=== PATIENT | female | born 1995 | race Caucasian/White ===

== ENCOUNTER 2016-12-31 18:50 | Emergency (ER) | payer BC ==
[2016-12-31] MEDS ORDERED: Ondansetron 4 MG/2 ML SDV IVPUSH ONE (19:02)
[2016-12-31] MEDS ORDERED: Sodium Chloride 0.9% 1,000 ML IV ONE (19:02)
--- NOTE | 2016-12-31 19:33 | EDM.PDOC ---
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 Pt reports pain in cramping in character. 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 Pt denies any waterbreak or vaginal discharge. Onset Date: 12/31/16 Onset Time: 18:00 Duration: Hour(s): (1) Location: Reports: Abdomen Quality: Reports: Other (cramping) Improves with: Reports: None Worsens with: Reports: None Associated Symptoms: Reports: Nausea/Vomiting - Related Data Allergies Allergy/AdvReac Type Severity Reaction Status Date / Time No Known Allergies Allergy Verified 12/29/16 17:15 Home Meds: Home Meds . 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: Social & Family History - Tobacco Use Smoking Status *Q: Never Smoker ED ROS GENERAL - Review of Systems Review Of Systems: See Below Constitutional: Reports: No Symptoms HEENT: Reports: No Symptoms Respiratory: Reports: No Symptoms Cardiovascular: Reports: No Symptoms Endocrine: Reports: No Symptoms GI/Abdominal: Reports: Abdominal Pain, Nausea, Vomiting : Reports: No Symptoms Musculoskeletal: Reports: No Symptoms Skin: Reports: No Symptoms Neurological: Reports: No Symptoms Psychiatric: Reports: No Symptoms Hematologic/Lymphatic: Reports: No Symptoms Immunologic: Reports: No Symptoms ED EXAM - Physical Exam Exam: See Below Exam Limited By: No Limitations General Appearance: Alert, WD/WN, No Apparent Distress Nose: Normal Inspection, Normal Mucosa, No Blood Throat/Mouth: Normal Inspection, Normal Lips, Normal Teeth, Normal Gums, Normal Oropharynx, Normal Voice, No Airway Compromise Head: Atraumatic, Normocephalic Neck: Normal Inspection, Supple, Non-Tender, Full Range of Motion Respiratory/Chest: No Respiratory Distress, Lungs Clear, Normal Breath Sounds, No Accessory Muscle Use, Chest Non-Tender Cardiovascular: Normal Peripheral Pulses, Regular Rate, Rhythm, No Edema, No Gallop, No JVD, No Murmur, No Rub GI/Abdominal Exam: Normal Bowel Sounds, No Organomegaly, No Abnormal Bruit, No Mass, Pelvis Stable, Tender (Female) Exam: Normal Bimanual Exam, Normal External Exam Heart Tones: Present Movement: Active Back Exam: Normal Inspection, Full Range of Motion, NT Extremities: Normal Inspection, Normal Range of Motion, Non-Tender, Normal Capillary Refill, No Pedal Edema Neurological: Alert, Oriented, CN II-XII Intact, Normal Cognition, Normal Gait, Normal Reflexes, No Motor/Sensory Deficits Psychiatric: Normal Affect, Normal Mood Course - Orders/Labs/Meds Orders: Active Orders 24 hr Category Date Time Status CBC WITH AUTO DIFF [HEME] Stat Lab 12/31/16 19:08 Ordered COMPREHENSIVE METABOLIC PN,CMP [CHEM] Stat Lab 12/31/16 19:08 Ordered UA W/MICROSCOPIC [URIN] Stat Lab 12/31/16 19:02 Uncollected Sodium Chloride 0.9% @ 999 MLS/HR (1000ml) Med 12/31/16 19:02 Ordered Sodium Chloride 0.9% [Normal Saline] 1,000 ml IV .BOLUS Medication Orders Sodium Chloride (Normal Saline) 1,000 mls @ 999 mls/hr IV .BOLUS ONE Stop: 12/31/16 20:02 Meds: Medications Generic Name Dose Route Start Last Admin Trade Name Freq PRN Reason Stop Dose Admin Sodium Chloride 1,000 mls @ 999 mls/hr 12/31/16 19:02 Normal Saline IV 12/31/16 20:02 .BOLUS ONE Discontinued Medications Generic Name Dose Route Start Last Admin Trade Name Freq PRN Reason Stop Dose Admin Ondansetron HCl 4 mg 12/31/16 19:02 Zofran IVPUSH 12/31/16 19:03 ONETIME ONE Departure - Departure Time of Disposition: 19:37 Disposition: DC/Tfer to Acute Hospital 02 Condition: Good Clinical Impression: Abdominal pain affecting , Vomiting - Discharge Information Forms: Interfacility Transfer EMTALA - My Orders Last 24 Hours: My Active Orders 12/31/16 19:02 UA W/MICROSCOPIC [URIN] Stat Sodium Chloride 0.9% @ 999 MLS/HR (1000ml) Sodium Chloride 0.9% [Normal Saline] 1,000 ml IV .BOLUS 12/31/16 19:08 CBC WITH AUTO DIFF [HEME] Stat COMPREHENSIVE METABOLIC PN,CMP [CHEM] Stat - Assessment/Plan Last 24 Hours: My Active Orders 12/31/16 19:02 UA W/MICROSCOPIC [URIN] Stat Sodium Chloride 0.9% @ 999 MLS/HR (1000ml) Sodium Chloride 0.9% [Normal Saline] 1,000 ml IV .BOLUS 12/31/16 19:08 CBC WITH AUTO DIFF [HEME] Stat COMPREHENSIVE METABOLIC PN,CMP [CHEM] Stat Assessment:: 1. abdominal pain in a 37 week 2. vomiting Plan: 1. discussed case with Dr Olivas- PAYROLL MACHINE OPERATOR who accepted transfer to Labor and delivery department. 2. supportive care
[2017-01-01 02:01] VITALS: BP 140/65
== END 2016-12-31 19:50 ==
LOC: KA.ED 18:50
DX: O21.9 Vomiting of pregnancy, unspecified (principal); O99.89 Other specified diseases and conditions complicating pregnancy, childbirth and the puerperium; R10.9 Unspecified abdominal pain; Z3A.37 37 weeks gestation of pregnancy
CPT/HCPCS: 96361; 96374; 99285; J2405; J7030

== ENCOUNTER 2017-03-18 13:14 | Emergency (ER) | payer BC ==
[2017-03-18 13:32] VITALS: BP 125/80
[2017-03-18] MEDS ORDERED: Sodium Chloride 0.9% 1,000 ML IV ONE (13:59)
[2017-03-18] MEDS ORDERED: Ondansetron 4 MG/2 ML SDV IVPUSH ONE (13:59)
[2017-03-18] MEDS ORDERED: Sodium Chloride 0.9% 5 ML Syringe FLUSH PRN (13:59)
--- NOTE | 2017-03-18 14:05 | EDM.PDOC ---
ED HPI GENERAL MEDICAL PROBLEM - General Chief Complaint: Gastrointestinal Problem Stated Complaint: DEHYDRATION,BODY NUMBNESS,VOMITING,HEADACHE,FEVER Time Seen by Provider: 03/18/17 13:58 Source of Information: Reports: Patient History Limitations: Reports: No Limitations - History of Present Illness INITIAL COMMENTS - FREE TEXT/NARRATIVE: PT STATES SHE DEVELOPED COUGH, CONGESTION, BODY ACHES, N/V SINCE YESTERDAY. GENERAL C/O DOESN'T FEEL WELL AND HAS CHILLS BUT DID NOT TAKE TEMP. DENIES CLOSE CONTACT WITH OTHERS WHO HAVE SAME SYMPTOMS, CP, SOB, DYSURIA OR ABD PAIN. BY 10 WEEKS. Onset: Gradual Onset Date: 03/17/17 Duration: Day(s): Quality: Reports: Ache Severity: Mild Improves with: Reports: None Worsens with: Reports: None Associated Symptoms: Reports: Cough, cough w sputum, Fever/Chills, Nausea/ Vomiting - Related Data Allergies Allergy/AdvReac Type Severity Reaction Status Date / Time No Known Allergies Allergy Verified 03/18/17 13:32 Home Meds: Home Meds . 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: Neurological History: Reports: Headaches, Chronic - Infectious Disease History Infectious Disease History: Reports: Chicken Pox - Past Surgical History HEENT Surgical History: Reports: None GI Surgical History: Reports: Cholecystectomy Female Surgical History: Reports: None Neurological Surgical History: Reports: None Social & Family History - Tobacco Use Smoking Status *Q: Never Smoker - Caffeine Use Caffeine Use: Reports: Coffee, Soda Other Caffeine Use: coke and pepsi - Recreational Drug Use Recreational Drug Use: No ED ROS GENERAL - Review of Systems Review Of Systems: ROS reveals no pertinent complaints other than HPI. Constitutional: Reports: Chills, Malaise, Fatigue HEENT: Reports: No Symptoms Respiratory: Reports: Cough Cardiovascular: Reports: No Symptoms Endocrine: Reports: No Symptoms GI/Abdominal: Reports: Hematochezia, Nausea, Vomiting. Denies: Abdominal Pain, Black Stool, Bloody Stool, Hematemesis : Reports: No Symptoms Musculoskeletal: Reports: No Symptoms Skin: Reports: No Symptoms Neurological: Reports: No Symptoms Psychiatric: Reports: No Symptoms Hematologic/Lymphatic: Reports: No Symptoms Immunologic: Reports: No Symptoms ED EXAM, GENERAL - Physical Exam Exam: See Below Exam Limited By: No Limitations General Appearance: Alert, WD/WN, No Apparent Distress Nose: Normal Inspection, No Blood, Clear Rhinorrhea Throat/Mouth: Normal Inspection, Normal Oropharynx, No Airway Compromise Head: Atraumatic, Normocephalic Neck: Normal Inspection, Supple, Non-Tender. No: Lymphadenopathy (L), Lymphadenopathy (R) Respiratory/Chest: No Respiratory Distress, Lungs Clear, Normal Breath Sounds, No Accessory Muscle Use, Chest Non-Tender Cardiovascular: Regular Rate, Rhythm, No Murmur GI/Abdominal: Normal Bowel Sounds, Soft, Non-Tender, No Organomegaly, No Distention, No Abnormal Bruit, No Mass Back Exam: Normal Inspection. No: CVA Tenderness (L), CVA Tenderness (R) Extremities: Normal Inspection, No Pedal Edema Neurological: Alert, Oriented, Normal Cognition Psychiatric: Normal Affect, Normal Mood Skin Exam: Warm, Dry, Intact, Normal Color, No Rash Lymphatic: No Adenopathy Course - Vital Signs Last Recorded V/S: Last Vital Signs Temp 98.4 F 03/18/17 13:28 Pulse 100 03/18/17 13:28 Resp 18 03/18/17 13:28 BP 125/80 03/18/17 13:28 Pulse Ox 98 03/18/17 13:28 - Orders/Labs/Meds Orders: Active Orders 24 hr Category Date Time Status Peripheral IV Care [RC] . DIRECTED Care 03/18/17 13:59 Ordered INFLUENZA A+B AG SCREEN [RM] Stat Lab 03/18/17 13:41 Ordered Ondansetron [Zofran] Med 03/18/17 13:59 Once 4 mg IVPUSH ONETIME ONE Sodium Chloride 0.9% @ 999 MLS/HR (1000ml) Med 03/18/17 13:59 Ordered Sodium Chloride 0.9% [Normal Saline] 1,000 ml IV .BOLUS Sodium Chloride 0.9% [Syrex Flush] Med 03/18/17 13:59 Ordered 5 ml FLUSH Q8HR PRN Peripheral IV Insertion Adult [OM.PC] Routine Oth 03/18/17 13:59 Ordered Labs: Laboratory Tests 03/18/17 Range/Units 13:45 Urine HCG, Qual Negative (NEGATIVE) - Re-Assessments/Exams Free Text/Narrative Re-Assessment/Exam: 03/18/17 14:29 PT AFEBRILE, NONTOXIC APPEARING, VSS, FEELS BETTER. Departure - Departure Time of Disposition: 14:33 Disposition: Home, Self-Care 01 Condition: Good Clinical Impression: Acute viral syndrome - Discharge Information Instructions: Dehydration, Adult, [id number], Nausea and Vomiting, Adult, [id number], Viral Respiratory Infection, [id number] Referrals: Koki Hyde MD [Primary Care Provider] - Additional Instructions: FOLLOW UP AT CLINIC IN 2-3 DAYS. RETURN TO ER SOONER IF SYMPTOMS CONTINUE - My Orders Last 24 Hours: My Active Orders 03/18/17 13:41 INFLUENZA A+B AG SCREEN [RM] Stat 03/18/17 13:59 Peripheral IV Care [RC] . DIRECTED Ondansetron [Zofran] 4 mg IVPUSH ONETIME ONE Sodium Chloride 0.9% @ 999 MLS/HR (1000ml) Sodium Chloride 0.9% [Normal Saline] 1,000 ml IV .BOLUS Sodium Chloride 0.9% [Syrex Flush] 5 ml FLUSH Q8HR PRN Peripheral IV Insertion Adult [OM.PC] Routine - Assessment/Plan Last 24 Hours: My Active Orders 03/18/17 13:41 INFLUENZA A+B AG SCREEN [RM] Stat 03/18/17 13:59 Peripheral IV Care [RC] . DIRECTED Ondansetron [Zofran] 4 mg IVPUSH ONETIME ONE Sodium Chloride 0.9% @ 999 MLS/HR (1000ml) Sodium Chloride 0.9% [Normal Saline] 1,000 ml IV .BOLUS Sodium Chloride 0.9% [Syrex Flush] 5 ml FLUSH Q8HR PRN Peripheral IV Insertion Adult [OM.PC] Routine Assessment:: VIRAL SYNDROME Plan: F/U WITH PCP
[2017-03-18] MEDS ORDERED: Ketorolac 30 MG/ML SDV IVPUSH ONE (14:28)
== END 2017-03-18 15:10 | disposition home or self-care (01) ==
LOC: KA.ED 13:14
DX: B34.9 Viral infection, unspecified (principal)
CPT/HCPCS: 81025; 87804; 96361; 96374; 96375; 99283; J1885; J2405; J7030

== ENCOUNTER 2018-08-28 13:12 | Emergency (ER) | payer BC ==
[2018-08-28 13:29] VITALS: BP 123/73
--- NOTE | 2018-08-28 13:36 | EDM.PDOC ---
ED HPI GENERAL MEDICAL PROBLEM - General Chief Complaint: General Stated Complaint: rt ankle Time Seen by Provider: 08/28/18 13:31 Source of Information: Reports: Patient History Limitations: Reports: No Limitations - History of Present Illness INITIAL COMMENTS - FREE TEXT/NARRATIVE: While descending stairs on third step slipped and fell striking the base of the stairway/floor. [place] crackling sound and noticed intense pain immediately with swollen forming to the lateral aspect predominantly on the lateral malleolus right ankle Onset: Today, Sudden Duration: Minutes: Location: Reports: Lower Extremity, Right Quality: Reports: Sharp, Throbbing Severity: Severe Improves with: Reports: Cold Therapy Worsens with: Reports: Movement Context: Reports: Activity Associated Symptoms: Reports: No Other Symptoms Right Ankle Pain Score (Numeric/FACES): 10 - Related Data Allergies Allergy/AdvReac Type Severity Reaction Status Date / Time No Known Allergies Allergy Verified 08/28/18 13:32 Home Meds: Home Meds . 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: Neurological History: Reports: Headaches, Chronic - Infectious Disease History Infectious Disease History: Reports: Chicken Pox - Past Surgical History HEENT Surgical History: Reports: None GI Surgical History: Reports: Cholecystectomy Female Surgical History: Reports: None Neurological Surgical History: Reports: None Social & Family History - Caffeine Use Caffeine Use: Reports: Coffee, Soda Other Caffeine Use: coke and pepsi ED ROS GENERAL - Review of Systems Review Of Systems: See Below Constitutional: Reports: No Symptoms HEENT: Reports: No Symptoms Respiratory: Reports: No Symptoms Cardiovascular: Reports: No Symptoms Endocrine: Reports: No Symptoms GI/Abdominal: Reports: No Symptoms : Reports: No Symptoms Musculoskeletal: Reports: Joint Pain, Joint Swelling Skin: Reports: No Symptoms Neurological: Reports: No Symptoms Psychiatric: Reports: No Symptoms Hematologic/Lymphatic: Reports: No Symptoms Immunologic: Reports: No Symptoms ED EXAM, GENERAL - Physical Exam Exam: See Below General Appearance: Alert, WD/WN, No Apparent Distress Ears: Normal External Exam Nose: Normal Inspection, No Blood Throat/Mouth: Normal Inspection, Normal Oropharynx Head: Atraumatic, Normocephalic Neck: Normal Inspection, Supple, Non-Tender, Full Range of Motion Respiratory/Chest: No Respiratory Distress, Lungs Clear, No Accessory Muscle Use Cardiovascular: Regular Rate, Rhythm, No Murmur GI/Abdominal: Normal Bowel Sounds (Female) Exam: Deferred Extremities: Joint Swelling, Leg Pain Neurological: Alert, Oriented, CN II-XII Intact, Normal Cognition, Normal Gait, Normal Reflexes, No Motor/Sensory Deficits Psychiatric: Normal Affect, Normal Mood Skin Exam: Warm, Dry, Intact, Normal Color, No Rash Lymphatic: No Adenopathy Course - Vital Signs Last Recorded V/S: Last Vital Signs Temp 36.7 C 08/28/18 13:25 Pulse 104 H 08/28/18 13:25 Resp 20 08/28/18 13:25 BP 123/73 08/28/18 13:25 Pulse Ox 96 08/28/18 13:25 - Orders/Labs/Meds Orders: Active Orders 24 hr Category Date Time Status Ankle Min 3V Rt [CR] Stat Exams 08/28/18 13:33 Taken Departure - Departure Time of Disposition: 14:10 Disposition: Home, Self-Care 01 Condition: Good Clinical Impression: Sprained ankle, Joint effusion of lower extremity - Discharge Information *PRESCRIPTION DRUG MONITORING PROGRAM REVIEWED*: Not Applicable *COPY OF PRESCRIPTION DRUG MONITORING REPORT IN PATIENT DAYO: Not Applicable Referrals: Elizabeth Busch PA-C [Primary Care Provider] - Forms: ED Department Discharge - Problem List & Annotations (1) Sprained ankle SNOMED Code(s): 72363472 Code(s): S93.409A - SPRAIN OF UNSP LIGAMENT OF UNSPECIFIED ANKLE, INIT ENCNTR Status: Acute Priority: High Current Visit: Yes Qualifiers: Involved ligament of ankle: unspecified ligament Laterality: right (2) Joint effusion of lower extremity SNOMED Code(s): 173946449 Code(s): M25.40 - EFFUSION, UNSPECIFIED JOINT Status: Acute Priority: High Current Visit: Yes - Problem List Review Problem List Initiated/Reviewed/Updated: Yes - My Orders Last 24 Hours: My Active Orders 08/28/18 13:33 Ankle Min 3V Rt [CR] Stat - Assessment/Plan Last 24 Hours: My Active Orders 08/28/18 13:33 Ankle Min 3V Rt [CR] Stat Plan: Ice elevate and rest for the next 36 hours. You may remove Zachary wrap twice daily and for hygiene as needed. Limits her activity for the next 36 hours with protection to avoid further injury. If you do not start to see improvement by Tuesday consider contacting your provider for discussion or clinic appointment reassessment.
== END 2018-08-28 14:30 | disposition home or self-care (01) ==
LOC: KA.ED 13:12
DX: S93.401A Sprain of unspecified ligament of right ankle, initial encounter (principal); W10.9XXA Fall (on) (from) unspecified stairs and steps, initial encounter
CPT/HCPCS: 73610-RT; 99283-25

== ENCOUNTER 2018-11-16 21:10 | Emergency (ER) | payer BC ==
[2018-11-16 21:27] VITALS: BP 153/81
--- NOTE | 2018-11-16 21:51 | EDM.PDOC ---
ED HPI GENERAL MEDICAL PROBLEM - General Chief Complaint: Lower Extremity Injury/Pain Stated Complaint: right ankle pain Time Seen by Provider: 11/16/18 21:33 Source of Information: Reports: Patient History Limitations: Reports: No Limitations - History of Present Illness Onset: Today Onset Date: 11/16/18 Onset Time: 11:00 Duration: Hour(s): Location: Reports: Lower Extremity, Right Quality: Reports: Ache Severity: Mild Improves with: Reports: None Worsens with: Reports: Movement Context: Reports: Trauma Associated Symptoms: Reports: No Other Symptoms right foot Pain Score (Numeric/FACES): 6 - Related Data Allergies Allergy/AdvReac Type Severity Reaction Status Date / Time No Known Allergies Allergy Verified 11/16/18 21:27 Home Meds: Home Meds . 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 Constitutional: Reports: No Symptoms Eyes: Reports: No Symptoms Ears: Reports: No Symptoms Nose: Reports: No Symptoms Mouth/Throat: Reports: No Symptoms Respiratory: Reports: No Symptoms Cardiovascular: Reports: No Symptoms GI/Abdominal: Reports: No Symptoms Genitourinary: Reports: No Symptoms Musculoskeletal: Reports: Foot Pain (Right) Skin: Reports: No Symptoms Neurological: Reports: No Symptoms Psychiatric: Reports: No Symptoms ED EXAM, GENERAL - Physical Exam Exam: See Below Exam Limited By: No Limitations General Appearance: Alert, WD/WN, No Apparent Distress Throat/Mouth: Normal Inspection, Normal Oropharynx, No Airway Compromise Head: Atraumatic, Normocephalic Neck: Normal Inspection Respiratory/Chest: No Respiratory Distress Back Exam: Normal Inspection Extremities: Leg Pain (Right ankle, lateral aspect, tender to palpation without edema or ecchymosis. Right lateral fifth metatarsal with tenderness to palpation and mild edema) Neurological: Alert, Oriented, Normal Cognition Psychiatric: Normal Affect, Normal Mood Skin Exam: Warm, Dry, Intact, Normal Color, No Rash Course - Vital Signs Last Recorded V/S: Last Vital Signs Temp 98.3 F 11/16/18 21:10 Pulse 107 H 11/16/18 21:10 Resp 18 11/16/18 21:10 BP 153/81 H 11/16/18 21:10 Pulse Ox 99 11/16/18 21:10 - Orders/Labs/Meds Orders: Active Orders 24 hr Category Date Time Status Ankle 2V Rt [CR] Stat Exams 11/16/18 21:28 Stop Req Ankle Min 3V Rt [CR] Stat Exams 11/16/18 21:32 Ordered Foot 2V Rt [CR] Stat Exams 11/16/18 21:28 Stop Req Foot Comp Min 3V Rt [CR] Stat Exams 11/16/18 21:32 Ordered - Re-Assessments/Exams Free Text/Narrative Re-Assessment/Exam: 11/16/18 21:51 Patient afebrile, vital signs stable, Zachary bandage applied. Rice instructions given. Patient will take [id number] NSAIDs. Departure - Departure Time of Disposition: 21:51 Disposition: Home, Self-Care 01 Condition: Good Clinical Impression: Ankle sprain Qualifiers: Encounter type: initial encounter Involved ligament of ankle: unspecified ligament Laterality: right Qualified Code(s): S93.401A - Sprain of unspecified ligament of right ankle, initial encounter Right foot sprain Qualifiers: Encounter type: initial encounter Qualified Code(s): S93.601A - Unspecified sprain of right foot, initial encounter - Discharge Information Instructions: Ankle Sprain, [id number], Elastic Bandage and RICE Additional Instructions: Follow-up with PCP in 2-3 days. Return to emergency sooner if symptoms continue or worsen. - My Orders Last 24 Hours: My Active Orders 11/16/18 21:28 Ankle 2V Rt [CR] Stat Foot 2V Rt [CR] Stat 11/16/18 21:32 Ankle Min 3V Rt [CR] Stat Foot Comp Min 3V Rt [CR] Stat - Assessment/Plan Last 24 Hours: My Active Orders 11/16/18 21:28 Ankle 2V Rt [CR] Stat Foot 2V Rt [CR] Stat 11/16/18 21:32 Ankle Min 3V Rt [CR] Stat Foot Comp Min 3V Rt [CR] Stat Assessment:: Ankle sprain Plan: Follow-up with PCP
--- NOTE | 2018-11-17 07:48 | CR ---
[id number] RAD/RAD Ankle Right 3V Min EXAM: RAD Ankle Right 3V Min CLINICAL DATA: RIGHT ANKLE PAIN COMPARISON: CORRELATION IS MADE WITH THE EXAM OF AUGUST 28, 2018. FINDINGS: No fracture or dislocation is seen. There is no radiopaque foreign body in the soft tissues. There is no air in the soft tissues. There is no cortical thickening or periosteal reaction either. IMPRESSION: NEGATIVE PLAIN FILM EXAM. Chaka Caro MD 11/17/18 0747 Thank you for allowing us to participate in the care of your patient.
--- NOTE | 2018-11-17 07:49 | CR ---
[id number] RAD/RAD Foot Right 3V Min EXAM: RAD Foot Right 3V Min CLINICAL DATA: RIGHT ANKLE PAIN COMPARISON: NO PREVIOUS SIMILAR EXAM IS AVAILABLE. FINDINGS: No fracture or dislocation is seen. There is no radiopaque foreign body in the soft tissues. There is no air in the soft tissues. There is no cortical thickening or periosteal reaction either. IMPRESSION: NEGATIVE PLAIN FILM EXAM. Chaka Caro MD 11/17/18 0748 Thank you for allowing us to participate in the care of your patient.
== END 2018-11-16 21:55 | disposition home or self-care (01) ==
LOC: KA.ED 21:10
DX: S93.401A Sprain of unspecified ligament of right ankle, initial encounter (principal); S93.601A Unspecified sprain of right foot, initial encounter; X50.9XXA Other and unspecified overexertion or strenuous movements or postures, initial encounter
CPT/HCPCS: 73610-RT; 73630-RT; 99283-25

== ENCOUNTER 2019-08-04 09:15 | Emergency (ER) | payer BC ==
[2019-08-04 09:49] VITALS: BP 148/84; PULSE 97
--- NOTE | 2019-08-04 10:12 | EDM.PDOC ---
ED HPI GENERAL MEDICAL PROBLEM - General Chief Complaint: General Stated Complaint: emesis Time Seen by Provider: 08/04/19 09:30 Source of Information: Reports: Patient History Limitations: Reports: No Limitations - History of Present Illness INITIAL COMMENTS - FREE TEXT/NARRATIVE: Patient presents with vomiting that started about 5 hours ago. She has vomited 3-4 times. She denies fever but has had a cough for a week. She also has some dysuria for 3 days. Recently she had a UTI and finished a course of antibiotics for it about a month ago. She was fine until dysuria started again a few days ago. - Related Data Allergies Allergy/AdvReac Type Severity Reaction Status Date / Time No Known Allergies Allergy Verified 08/04/19 09:35 Home Meds: Home Meds . 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: Neurological History: Reports: Headaches, Chronic - Infectious Disease History Infectious Disease History: Reports: Chicken Pox - Past Surgical History HEENT Surgical History: Reports: None GI Surgical History: Reports: Cholecystectomy Female Surgical History: Reports: None Neurological Surgical History: Reports: None Social & Family History - Family History Family Medical History: Noncontributory - Caffeine Use Caffeine Use: Reports: Coffee, Soda Other Caffeine Use: coke and pepsi ED ROS GENERAL - Review of Systems Review Of Systems: See Below Constitutional: Reports: Fatigue, Decreased Appetite. Denies: Fever, Chills, Weakness HEENT: Denies: Ear Pain, Throat Pain, Vision Change Respiratory: Reports: Cough. Denies: Shortness of Breath Cardiovascular: Denies: Chest Pain, Lightheadedness, Syncope GI/Abdominal: Reports: Nausea, Vomiting. Denies: Abdominal Pain, Constipation, Diarrhea : Reports: Dysuria. Denies: Flank Pain Musculoskeletal: Denies: Neck Pain, Shoulder Pain, Arm Pain, Back Pain, Hand Pain Skin: Denies: Cyanosis, Jaundice, Mottled, Pallor, Diaphoresis Neurological: Denies: Confusion, Dizziness, Headache, Seizure, Syncope, Trouble Speaking, Difficulty Walking Psychiatric: Denies: Agitation, Anxiety, Confusion ED EXAM, GENERAL - Physical Exam Exam: See Below Exam Limited By: No Limitations General Appearance: Alert, WD/WN, No Apparent Distress Eye Exam: Bilateral Eye: EOMI, Normal Inspection, PERRL Ears: Normal External Exam, Normal Canal, Hearing Grossly Normal, Normal TMs Nose: Normal Inspection, No Blood Throat/Mouth: Normal Inspection, Normal Lips, Normal Oropharynx, Normal Voice, No Airway Compromise Head: Atraumatic, Normocephalic Neck: Normal Inspection, Supple, Non-Tender, Full Range of Motion Respiratory/Chest: No Respiratory Distress, Lungs Clear, Normal Breath Sounds, No Accessory Muscle Use. No: Crackles, Rales, Rhonchi, Wheezing, Stridor Cardiovascular: Regular Rate, Rhythm, No Murmur GI/Abdominal: Normal Bowel Sounds, Soft, Non-Tender Back Exam: Normal Inspection, Full Range of Motion. No: CVA Tenderness (L), CVA Tenderness (R) Extremities: Normal Inspection, Normal Range of Motion Neurological: Alert, Oriented, Normal Cognition, No Motor/Sensory Deficits Psychiatric: Normal Affect, Normal Mood Skin Exam: Warm, Dry, Intact, Normal Color, No Rash Course - Vital Signs Last Recorded V/S: Last Vital Signs Temp 97.8 F 08/04/19 09:30 Pulse 97 08/04/19 09:30 Resp 16 08/04/19 09:30 BP 148/84 H 08/04/19 09:30 Pulse Ox 97 08/04/19 09:30 - Orders/Labs/Meds Orders: Active Orders 24 hr Category Date Time Status CULTURE URINE [RM] Stat Lab 08/04/19 10:28 Ordered Labs: Laboratory Tests 08/04/19 Range/Units 10:10 Specimen Type Urincc Urine Color Yellow (YELLOW) Urine Appearance Slightly cloudy H (CLEAR) Urine pH 5.5 (5.0-9.0) Ur Specific [place] >= 1.030 (1.005-1.030) Urine Protein Trace H (NEGATIVE) mg/dL Urine Glucose (UA) Negative (NEGATIVE) mg/dL Urine Ketones Trace H (NEGATIVE) mg/dL Urine Occult Blood Trace-intact H (NEGATIVE) Urine Nitrite Negative (NEGATIVE) Urine Bilirubin Small H (NEGATIVE) Urine Urobilinogen 0.2 (0.2-1.0) E.U./dL Ur Leukocyte Esterase Small H (NEGATIVE) Urine RBC 0-5 (0-5) /HPF Urine WBC 10-20 H (0-5) /HPF Ur Epithelial Cells Many H /LPF Urine Bacteria Moderate H (NONE TO FEW) /HPF - Re-Assessments/Exams Free Text/Narrative Re-Assessment/Exam: 08/04/19 10:34 Discussed findings and treatment plan with patient. 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 Discharged to home in stable condition. Departure - Departure Time of Disposition: 10:31 Disposition: Home, Self-Care 01 Condition: Good Clinical Impression: Acute cystitis Qualifiers: Hematuria presence: without hematuria Qualified Code(s): N30.00 - Acute cystitis without hematuria Vomiting Qualifiers: Vomiting type: unspecified Vomiting Intractability: non-intractable Nausea presence: with nausea Qualified Code(s): R11.2 - Nausea with vomiting, unspecified - Discharge Information Instructions: Nausea and Vomiting, Adult, [id number], Urinary Tract Infection , Adult, [id number] Forms: ED Department Discharge Additional Instructions: 1. Drink 8 cups of water daily as able. 2. Take the antibiotic as directed for the UTI. 3. Follow up with your PCP in a week for recheck of urine. 4. Recheck with your PCP sooner if anything is worsening. Sepsis Event Note - Evaluation Sepsis Screening Result: No Definite Risk - Focused Exam Vital Signs: Vital Signs Temp Pulse Resp BP Pulse Ox 08/04/19 09:30 97.8 F 97 16 148/84 H 97 Date Exam was Performed: 08/04/19 Time Exam was Performed: 10:33 - My Orders Last 24 Hours: My Active Orders 08/04/19 10:28 CULTURE URINE [RM] Stat - Assessment/Plan Last 24 Hours: My Active Orders 08/04/19 10:28 CULTURE URINE [RM] Stat
== END 2019-08-04 10:45 | disposition home or self-care (01) ==
LOC: KA.ED 09:15
DX: N30.00 Acute cystitis without hematuria (principal); R11.2 Nausea with vomiting, unspecified; Z90.49 Acquired absence of other specified parts of digestive tract
CPT/HCPCS: 81001; 87086; 99284

== ENCOUNTER 2019-10-28 17:20 | Emergency (ER) | payer BC ==
[2019-10-28 18:09] LABS: ANION GAP 19.5 mmol/L (5-15); CHLORIDE,CL 101 mmol/L (98-115); SODIUM,NA 139 mmol/L (136-145)
[2019-10-28 18:41] VITALS: BP 116/65; PULSE 100
--- NOTE | 2019-10-28 19:05 | EDM.PDOC ---
ED HPI GENERAL MEDICAL PROBLEM - General Chief Complaint: General Stated Complaint: BLADDER INFECTION/yeast Time Seen by Provider: 10/28/19 17:30 Source of Information: Reports: Patient ([id number]) History Limitations: Reports: No Limitations - History of Present Illness INITIAL COMMENTS - FREE TEXT/NARRATIVE: 24-year-old female presents emergency room with severe burning with urination. Onset of symptoms occurred this past Tuesday. [facility] started on Bactrim. She did not have improvement of her symptoms. She was then seen at the [facility] and started on Cipro 750 mg twice a day and pyridine. She continues to have hematuria and dysuria. She reports severe tenderness in the vaginal area. Patient states that she was also tested for STDs in [facility]. She is sexually active in a monogamous relationship as well as her partner. He believes she has a yeast infection. She is not on anything for yeast infection. She is otherwise healthy. She denies any fever or chills. She has difficulty urinating due to the discomfort. She's trying to stay hydrated. She denies flank pain. 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: Neurological History: Reports: Headaches, Chronic - Infectious Disease History Infectious Disease History: Reports: Chicken Pox - Past Surgical History HEENT Surgical History: Reports: None GI Surgical History: Reports: Cholecystectomy Female Surgical History: Reports: None Neurological Surgical History: Reports: None Social & Family History - Family History Family Medical History: Noncontributory - Caffeine Use Caffeine Use: Reports: Coffee, Soda Other Caffeine Use: coke and pepsi ED ROS GENERAL - Review of Systems Review Of Systems: See Below Constitutional: Denies: Fever, Chills, Malaise, Weakness HEENT: Reports: No Symptoms Respiratory: Reports: No Symptoms Cardiovascular: Reports: No Symptoms Endocrine: Denies: High Glucose GI/Abdominal: Denies: Abdominal Pain, Nausea, Vomiting : Reports: Discharge, Dysuria, Hematuria, Pain, Urinary Retention. Denies: Flank Pain Musculoskeletal: Denies: Back Pain Skin: Reports: No Symptoms Neurological: Reports: No Symptoms Psychiatric: Reports: No Symptoms Hematologic/Lymphatic: Reports: No Symptoms Immunologic: Reports: No Symptoms ED EXAM, GENERAL - Physical Exam Exam: See Below General Appearance: Alert, WD/WN, Mild Distress Ears: Hearing Grossly Normal Nose: Normal Inspection Throat/Mouth: Normal Inspection, Normal Voice, No Airway Compromise Head: Atraumatic, Normocephalic Neck: Normal Inspection Respiratory/Chest: No Respiratory Distress GI/Abdominal: Soft, Non-Tender (Female) Exam: Vaginal Discharge. No: Vaginal Bleeding Rectal (Female) Exam: No: Hemorrhoids Back Exam: Normal Inspection, Full Range of Motion Extremities: Normal Inspection, Normal Range of Motion Neurological: Alert, Oriented, No Motor/Sensory Deficits Psychiatric: Normal Affect, Normal Mood Skin Exam: Warm, Dry, Intact Lymphatic: No Adenopathy Course - Vital Signs Last Recorded V/S: Last Vital Signs Temp 97.6 F 10/28/19 17:30 Pulse 100 10/28/19 17:30 Resp 20 10/28/19 17:30 BP 116/65 10/28/19 17:30 Pulse Ox 96 10/28/19 17:30 - Orders/Labs/Meds Orders: Active Orders 24 hr Category Date Time Status CULTURE URINE [RM] Stat Lab 10/28/19 18:42 Ordered Labs: Laboratory Tests 10/28/19 10/28/19 10/28/19 Range/Units 17:40 17:40 18:00 WBC 8.55 (5.00-10.00) 10^3/uL RBC 5.02 (3.80-5.50) 10^6/uL Hgb 14.4 (12.0-16.0) g/dL Hct 41.6 (37.0-47.0) % MCV 82.9 (82.0-92.0) fL MCH 28.7 (27.0-31.0) pg MCHC 34.6 (32.0-36.0) g/dL RDW 11.9 (11.5-14.5) % Plt Count 259 (150-400) 10^3/uL MPV 9.5 (7.4-10.4) fL Immature Gran % (Auto) 0.2 (0.0-5.0) % Neut % (Auto) 51.4 (50.0-70.0) % Lymph % (Auto) 35.3 (20.0-40.0) % [place] % (Auto) 10.3 H (2.0-8.0) % Eos % (Auto) 2.3 (1.0-3.0) % Baso % (Auto) 0.5 (0.0-1.0) % Neut # (Auto) 4.39 (2.50-7.00) 10^3/uL Lymph # (Auto) 3.02 (1.00-4.00) 10^3/uL [place] # (Auto) 0.88 H (0.10-0.80) 10^3/uL Eos # (Auto) 0.20 (0.10-0.30) 10^3/uL Baso # (Auto) 0.04 (0.00-0.10) 10^3/uL Immature Gran # (Auto) 0.02 (0.00-0.50) 10^3/uL Sodium 139 (136-145) mmol/L Potassium 3.3 (3.3-5.3) mmol/L Chloride 101 (98-115) mmol/L Carbon Dioxide 21.8 (21.0-32.0) mmol/L Anion Gap 19.5 H (5-15) mmol/L BUN 13 (6-25) mg/dL Creatinine 0.68 (0.51-1.17) mg/dL Est Cr Clr Drug Dosing TNP Estimated GFR (MDRD) > 60 mL/min Glucose 86 (75 - 99) mg/dL Calcium 8.9 (8.7-10.3) mg/dL Specimen Type Urincc Urine Color Yellow (YELLOW) Urine Appearance Clear (CLEAR) Urine pH 5.5 (5.0-9.0) Ur Specific [place] >= 1.030 (1.005-1.030) Urine Protein 100 H (NEGATIVE) mg/dL Urine Glucose (UA) 100 H (NEGATIVE) mg/dL Urine Ketones 40 H (NEGATIVE) mg/dL Urine Occult Blood Negative (NEGATIVE) Urine Nitrite Positive H (NEGATIVE) Urine Bilirubin Small H (NEGATIVE) Urine Urobilinogen 0.2 (0.2-1.0) E.U./dL Ur Leukocyte Esterase Negative (NEGATIVE) Urine RBC 5-10 H (0-5) /HPF Urine WBC 0-5 (0-5) /HPF Ur Epithelial Cells Rare /LPF Urine Bacteria Few (NONE TO FEW) /HPF Urine Mucus Few H (NEGATIVE) /LPF Urine HCG, Qual (NEGATIVE) 10/28/19 Range/Units 18:00 WBC (5.00-10.00) 10^3/uL RBC (3.80-5.50) 10^6/uL Hgb (12.0-16.0) g/dL Hct (37.0-47.0) % MCV (82.0-92.0) fL MCH (27.0-31.0) pg MCHC (32.0-36.0) g/dL RDW (11.5-14.5) % Plt Count (150-400) 10^3/uL MPV (7.4-10.4) fL Immature Gran % (Auto) (0.0-5.0) % Neut % (Auto) (50.0-70.0) % Lymph % (Auto) (20.0-40.0) % [place] % (Auto) (2.0-8.0) % Eos % (Auto) (1.0-3.0) % Baso % (Auto) (0.0-1.0) % Neut # (Auto) (2.50-7.00) 10^3/uL Lymph # (Auto) (1.00-4.00) 10^3/uL [place] # (Auto) (0.10-0.80) 10^3/uL Eos # (Auto) (0.10-0.30) 10^3/uL Baso # (Auto) (0.00-0.10) 10^3/uL Immature Gran # (Auto) (0.00-0.50) 10^3/uL Sodium (136-145) mmol/L Potassium (3.3-5.3) mmol/L Chloride (98-115) mmol/L Carbon Dioxide (21.0-32.0) mmol/L Anion Gap (5-15) mmol/L BUN (6-25) mg/dL Creatinine (0.51-1.17) mg/dL Est Cr Clr Drug Dosing Estimated GFR (MDRD) mL/min Glucose (75 - 99) mg/dL Calcium (8.7-10.3) mg/dL Specimen Type Urine Color (YELLOW) Urine Appearance (CLEAR) Urine pH (5.0-9.0) Ur Specific [place] (1.005-1.030) Urine Protein (NEGATIVE) mg/dL Urine Glucose (UA) (NEGATIVE) mg/dL Urine Ketones (NEGATIVE) mg/dL Urine Occult Blood (NEGATIVE) Urine Nitrite (NEGATIVE) Urine Bilirubin (NEGATIVE) Urine Urobilinogen (0.2-1.0) E.U./dL Ur Leukocyte Esterase (NEGATIVE) Urine RBC (0-5) /HPF Urine WBC (0-5) /HPF Ur Epithelial Cells /LPF Urine Bacteria (NONE TO FEW) /HPF Urine Mucus (NEGATIVE) /LPF Urine HCG, Qual Negative (NEGATIVE) Meds: Medications Discontinued Medications Generic Name Dose Route Start Last Admin Trade Name Freq PRN Reason Stop Dose Admin Fluconazole/Sodium Chloride 200 mls @ 200 mls/hr 10/28/19 17:53 400 mg/ Premix IV 10/28/19 18:52 ONETIME ONE Departure - Departure Time of Disposition: 20:15 Disposition: Home, Self-Care 01 Condition: Good Clinical Impression: Yeast infection involving the vagina and surrounding area Hematuria Qualifiers: Hematuria type: other microscopic Qualified Code(s): R31.29 - Other microscopic hematuria; R31.2 - Other microscopic hematuria Proteinuria Qualifiers: Proteinuria type: isolated Isolated proteinuria type: without specific morphologic lesion Qualified Code(s): R80.0 - Isolated proteinuria UTI (urinary tract infection) Qualifiers: Urinary tract infection type: urethritis Qualified Code(s): N34.2 - Other urethritis - Discharge Information Instructions: Vaginal Yeast Infection, Adult, Urinary Tract Infection, Adult, [id number], Proteinuria, Hematuria, Adult Referrals: Elizabeth Busch PA-C [Primary Care Provider] - Forms: ED Department Discharge Sepsis Event Note - Evaluation Sepsis Screening Result: No Definite Risk - Focused Exam Vital Signs: Vital Signs Temp Pulse Resp BP Pulse Ox 10/28/19 17:30 97.6 F 100 20 116/65 96 Date Exam was Performed: 10/28/19 Time Exam was Performed: 18:59 - My Orders Last 24 Hours: My Active Orders 10/28/19 18:42 CULTURE URINE [RM] Stat - Assessment/Plan Last 24 Hours: My Active Orders 10/28/19 18:42 CULTURE URINE [RM] Stat Assessment:: Hematuria Proteinuria Urinary tract infection Vaginal yeast infection Plan: 1. Encourage oral hydration 2. Continue with pyridine and Cipro 750 mg twice a day for urinary tract infection. 3. Fluconazole 400mg IV one time. 4. Follow-up with primary care in 24-48 hours if symptoms are not significantly improved. Follow-up with urine catheter culture results.
[2019-10-28] MEDS: Fluconazole/Normal Saline 400 MG in Premix Bag 1 BAG IV ONE (19:07)
[2019-10-28] MEDS: Sodium Chloride 0.9% 50 ML IV SCH (20:00)
== END 2019-10-28 20:15 | disposition home or self-care (01) ==
LOC: KA.ED 17:20
DX: N34.2 Other urethritis (principal); B37.3 Candidiasis of vulva and vagina; R80.0 Isolated proteinuria; R31.29 Other microscopic hematuria
CPT/HCPCS: 36415; 80048; 81001; 81025; 85025; 87086; 96365; 99283-25; J1450; J7050

== ENCOUNTER 2020-02-06 20:19 | Emergency (ER) | payer SELFPAY ==
[2020-02-06] MEDS ORDERED: Ondansetron 4 MG Tab.DIS ONE (20:28)
[2020-02-06] MEDS ORDERED: Ondansetron 4 MG Tab.DIS PO ONE (20:31)
[2020-02-06 20:33] VITALS: BP 137/94; PULSE 92
[2020-02-06] MEDS ORDERED: Ketorolac 30 MG/ML SDV IM ONE (20:43)
[2020-02-06] MEDS ORDERED: diphenhydrAMINE 50 MG/ML SDV IM ONE (20:44)
--- NOTE | 2020-02-06 20:52 | EDM.PDOC ---
ED HPI GENERAL MEDICAL PROBLEM - General Chief Complaint: General Stated Complaint: Migraine Time Seen by Provider: 02/06/20 20:35 - History of Present Illness INITIAL COMMENTS - FREE TEXT/NARRATIVE: Presents emergency room for migraine for the past 4 days. The migraine pain has been intermittent and pain is located around her entire head. She describes as a throbbing headache that intermittently. This is like her normal type migraines in the past. She denies any changes of her type headache she currently has. She states it is a gradual onset and is not the worst headache of her life. She occasionally has a migraine once in a while and usually goes to clinic and gets IM injections which usually abates the pain. She did take 400 mg ibuprofen with food this morning and at noon with some relief. She did not have any pain this afternoon but when she got off work and got home at 630 her pain returned. She has had some nausea on and off today, but with no emesis. She has no upper respiratory symptoms no fever or chills. She has no diplopia or visual changes weakness numbness. She has no photosensitivity or phonophobia. She does not have aura with her migraines. She rates her 8/10. There is no radiation of this pain. No other associated symptoms besides nausea. Headache Pain Score (Numeric/FACES): 8 - Related Data Allergies Allergy/AdvReac Type Severity Reaction Status Date / Time No Known Allergies Allergy Verified 02/06/20 20:20 Home Meds: Home Meds . 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: Neurological History: Reports: Headaches, Chronic - Infectious Disease History Infectious Disease History: Reports: Chicken Pox - Past Surgical History HEENT Surgical History: Reports: None GI Surgical History: Reports: Cholecystectomy Female Surgical History: Reports: None Neurological Surgical History: Reports: None Social & Family History - Family History Family Medical History: Noncontributory - Tobacco Use Smoking Status *Q: Current Every Day Smoker Years of Tobacco use: 6 Packs/Tins Daily: 1 - Caffeine Use Caffeine Use: Reports: Energy Drinks, Soda Other Caffeine Use: coke and pepsi - Recreational Drug Use Recreational Drug Use: No ED ROS GENERAL - Review of Systems Review Of Systems: See Below Constitutional: Reports: No Symptoms. Denies: Fever, Chills HEENT: Reports: No Symptoms Respiratory: Reports: No Symptoms. Denies: Shortness of Breath Cardiovascular: Reports: No Symptoms. Denies: Chest Pain GI/Abdominal: Reports: Nausea. Denies: Abdominal Pain, Vomiting Musculoskeletal: Reports: No Symptoms. Denies: Neck Pain, Muscle Pain Skin: Reports: No Symptoms. Denies: Rash Neurological: Reports: Headache. Denies: Confusion, Dizziness, Numbness, Paresthesia, Weakness Psychiatric: Reports: Other (has been stressed this past week) ED EXAM, GENERAL - Physical Exam Exam: See Below Exam Limited By: No Limitations General Appearance: Alert, WD/WN, No Apparent Distress Eye Exam: Bilateral Eye: EOMI, PERRL Nose: Normal Inspection, Normal Mucosa Throat/Mouth: Normal Inspection, Normal Lips Head: Atraumatic, Normocephalic Neck: Supple, Non-Tender Respiratory/Chest: No Respiratory Distress, Lungs Clear Cardiovascular: Normal Peripheral Pulses, Regular Rate, Rhythm Extremities: Normal Inspection, Normal Range of Motion Neurological: Alert, Oriented, CN II-XII Intact, Normal Cognition, Normal Gait Psychiatric: Normal Affect, Normal Mood Skin Exam: Warm, Dry, Intact, No Rash Course - Vital Signs Last Recorded V/S: Last Vital Signs Temp 98.9 F 02/06/20 20:33 Pulse 92 02/06/20 20:33 Resp 18 02/06/20 20:33 BP 137/94 H 02/06/20 20:33 Pulse Ox 94 L 02/06/20 20:33 - Orders/Labs/Meds Meds: Medications Discontinued Medications Generic Name Dose Route Start Last Admin Trade Name Getq PRN Reason Stop Dose Admin Diphenhydramine HCl 50 mg 02/06/20 20:44 02/06/20 20:49 Benadryl IM 02/06/20 20:45 50 mg ONETIME ONE Administration Ketorolac Tromethamine 30 mg 02/06/20 20:43 02/06/20 20:49 Toradol IM 02/06/20 20:44 30 mg ONETIME ONE Administration Ondansetron HCl Confirm 02/06/20 20:28 02/06/20 20:33 Zofran Odt Administered 02/06/20 20:29 Not Given Dose 4 mg .ROUTE .STK-MED ONE Ondansetron HCl 4 mg 02/06/20 20:31 02/06/20 20:32 Zofran Odt PO 02/06/20 20:32 4 mg ONETIME ONE Administration - Re-Assessments/Exams Free Text/Narrative Re-Assessment/Exam: 02/06/20 20:53 Patient denies current . No red flags at this migraine headache. No focal neurological deficits. Departure - Departure Time of Disposition: 20:47 Disposition: Home, Self-Care 01 Condition: Good Clinical Impression: Migraine Qualifiers: Migraine type: without aura Status migrainosus presence: without status migrainosus Intractability: intractable Qualified Code(s): G43.019 - Migraine without aura, intractable, without status migrainosus - Discharge Information *PRESCRIPTION DRUG MONITORING PROGRAM REVIEWED*: No *COPY OF PRESCRIPTION DRUG MONITORING REPORT IN PATIENT DAYO: No Instructions: Migraine Headache, [id number] Referrals: Elizabeth Busch PA-C [Primary Care Provider] - Forms: ED Department Discharge Additional Instructions: Follow-up with your primary care provider this week or next week if migraines become more frequent and recurring to help manage his migraines. keep hydrated and get plenty sleep tonight. Call me tomorrow if you have any further concerns or do not get any better. Sepsis Event Note (ED) - Evaluation Sepsis Screening Result: No Definite Risk - Focused Exam Vital Signs: Vital Signs Temp Pulse Resp BP Pulse Ox 02/06/20 20:33 98.9 F 92 18 137/94 H 94 L
== END 2020-02-06 21:00 | disposition home or self-care (01) ==
LOC: KA.ED 20:19
DX: G43.019 Migraine without aura, intractable, without status migrainosus (principal); F17.210 Nicotine dependence, cigarettes, uncomplicated
CPT/HCPCS: 96372; 99283; A9270-GY; J1200; J1885

== ENCOUNTER 2022-03-16 07:58 | Day surgery (SDC) | payer OTHER ==
[2022-03-16] MEDS ORDERED: Propofol 200 MG/20 ML SDV IV ONE (07:59)
[2022-03-16] MEDS ORDERED: Sodium Chloride 0.9% 10 ML Syringe FLUSH PRN (08:00)
[2022-03-16] MEDS ORDERED: Lactated Ringers 1,000 ML IV SCH (08:00)
[2022-03-16] MEDS ORDERED: Midazolam 1 MG/ML 2 ML SDV ONE (09:01)
[2022-03-16] MEDS ORDERED: Ketamine 200 MG/20 ML MDV ONE (09:02)
[2022-03-16] MEDS ORDERED: Glycopyrrolate 0.2 MG/ML SDV ONE (09:02)
[2022-03-16] MEDS ORDERED: Propofol 200 MG/20 ML SDV ONE ×2 (09:02→09:31)
[2022-03-16] MEDS ORDERED: Lidocaine 2% 5 ML SDV ONE (09:05)
[2022-03-16 09:59] VITALS: BP 137/87; PULSE 99
== END 2022-03-16 10:50 | disposition home or self-care (01) ==
LOC: KA.SDS 07:58
PROVIDERS: ATTEND Surgery
DX: K22.2 Esophageal obstruction (principal); K21.00 Gastro-esophageal reflux disease with esophagitis, without bleeding; G47.00 Insomnia, unspecified; G43.909 Migraine, unspecified, not intractable, without status migrainosus; Z79.899 Other long term (current) drug therapy
CPT/HCPCS: 00731; 81025; J2250; J2704; J3490; J7120